=== PATIENT | male | born 1975 | race Caucasian/White ===

== ENCOUNTER 2025-09-13 15:26 | Inpatient (IN) | payer MEDICAID ==
[~2025-09-13] VITALS: Ht 165.1 cm; Wt 58.6 kg
[2025-09-13 15:31] VITALS: O2SAT 99
[2025-09-13 17:06] LABS: BASOPHILS % 0.4 % (0.0-2.0); EOSINOPHILS % 0.2 % (0.0-5.0); HEMATOCRIT. 44.2 % (42.0-52.0); HEMOGLOBIN. 14.7 g/dL (14.0-18.0); LYMPHOCYTES % 10.5 % (20.0-50.0); MEAN PLATELET VOLUME 7.8 fl (7.4-10.4); MONOCYTES % 2.8 % (2.0-8.0); NEUTROPHILS % 86.1 % (40.0-76.0); PLATELET 340 x1000/uL (130-400); RED BLOOD CELL COUNT 5.16 mill/uL (4.7-6.1); RED CELL DISTRIBUTION WIDTH 13.8 % (11.6-14.6)
[2025-09-13 17:20] LABS: CREATININE 0.8 mg/dL (0.6-1.3); ETHANOL BLOOD 63 mg/dL (<10); UREA NITROGEN BLOOD 6 mg/dL (9-23)
[2025-09-13 17:21] LABS: ASPARTATE AMINOTRANSFERASE 34 IU/L (<34)
[2025-09-13 17:22] LABS: BILIRUBIN DIRECT 0.1 mg/dL (<=3.0); BILIRUBIN TOTAL 0.4 mg/dL (0.1-1.0); PROTEIN TOTAL 8.1 g/dL (6.0-8.3)
[2025-09-13] MEDS: SODIUM CHLORIDE 0.9% 1,000 ML IV ONE (17:52)
[2025-09-13] MEDS: MORPHINE SULFATE 4 MG/ML INJ (FOR IV/IM USE) IV ONE (17:53)
[2025-09-13] MEDS: ONDANSETRON HCL 4MG/2ML INJ IV ONE (17:53)
[2025-09-13 20:56] LABS: CLARITY URINE CLEAR (CLEAR); GLUCOSE URINE 1+ (NEGATIVE); KETONES URINE 1+ (NEGATIVE); LEUKOCYTE ESTERASE URINE NEGATIVE (NEGATIVE); NITRITE URINE NEGATIVE (NEGATIVE); OCCULT BLOOD URINE NEGATIVE (NEGATIVE); PH URINE 5.5 (4.5-8.0); PROTEIN URINE NEGATIVE (NEGATIVE); SPECIFIC GRAVITY URINE 1.025 (1.005-1.030); UROBILINOGEN URINE 0.2 E.U./dL (0.2-1.0)
[2025-09-13 21:40] LABS: COLOR URINE STRAW (YELLOW)
[2025-09-13 21:41] LABS: BACTERIA URINE NONE SEEN; RBC URINE NONE SEEN /hpf (0-2); SQUAMOUS EPITHELIAL CELL URINE NONE SEEN /lpf (RARE/1+); WBC URINE 0-2 /hpf (0-2)
[2025-09-13] MEDS: MORPHINE SULFATE 2 MG/ML INJ (NOT FOR IM USE) IV SCH (22:26)
[2025-09-13] MEDS ORDERED: IOHEXOL-300 100 ML BOTTLE ONE (23:37)
[2025-09-13 23:50] VITALS: BP 141/88; PULSE 61; RESP 17; TEMP 35.584
[2025-09-14] MEDS ORDERED: NALOXONE HCL 0.4MG/ML VIAL IV PRN (00:45)
[2025-09-14] MEDS: DEXT 5%/0.45% NACL 1000ML 1,000 ML IV SCH (01:32)
[2025-09-14] MEDS: PANTOPRAZOLE SODIUM 40 MG/VIAL IV SCH (01:32)
[2025-09-14] MEDS: MORPHINE SULFATE 2 MG/ML INJ (NOT FOR IM USE) IV PRN (02:46)
[2025-09-14 04:00] VITALS: BP 148/100; PULSE 83; RESP 19; TEMP 35.8; O2SAT 99
[2025-09-14] MEDS: PIPERACILLIN/TAZO 3.375G/50ML 50 ML IV SCH (05:58)
[2025-09-14 08:00] VITALS: BP 127/97; PULSE 106; RESP 18; TEMP 36.4; O2SAT 98
[2025-09-14 09:23] LABS: CREATININE 1.2 mg/dL (0.6-1.3); UREA NITROGEN BLOOD 10 mg/dL (9-23)
[2025-09-14 12:00] VITALS: BP 126/94; PULSE 101; RESP 18; TEMP 36.5; O2SAT 99
[2025-09-14 13:00] LABS: HEMATOCRIT. 58.2 % (42.0-52.0); HEMOGLOBIN. 19.2 g/dL (14.0-18.0); MEAN PLATELET VOLUME 8.6 fl (7.4-10.4); PLATELET 427 x1000/uL (130-400); RED BLOOD CELL COUNT 6.80 mill/uL (4.7-6.1); RED CELL DISTRIBUTION WIDTH 14.2 % (11.6-14.6)
[2025-09-14 16:00] VITALS: BP 123/95; PULSE 107; RESP 18; TEMP 36.4; O2SAT 98
[2025-09-14] MEDS: DIATR MEGLU/DIATRIZOATE SOLN 30ML PO SCH (16:47)
[2025-09-14] MEDS: ONDANSETRON HCL 4MG/2ML INJ IV PRN (18:06)
[2025-09-14 20:00] VITALS: BP 129/99; PULSE 110; RESP 18; TEMP 36.3; O2SAT 99
[2025-09-14 20:07] LABS: LYMPHOCYTES % MANUAL 3.0 % (20.0-50.0); MONOCYTES % MANUAL 11.0 % (2.0-8.0); NEUTROPHILS % MANUAL 86.0 % (45.0-75.0)
[2025-09-14 20:08] LABS: PLATELET ESTIMATE INCREASED
[2025-09-14] MEDS ORDERED: IOHEXOL-300 100 ML BOTTLE ONE (23:15)
[2025-09-15] VITALS: BP 133/102; PULSE 117; RESP 19; TEMP 36.3; O2SAT 97
[2025-09-15] MEDS: MEROPENEM 1G/100ML 100 ML IV SCH (03:36)
[2025-09-15 04:00] VITALS: BP 131/104; PULSE 107; RESP 18; TEMP 35.8; O2SAT 97
[2025-09-15] MEDS: VANCOMYCIN 1.25GM/250ML 250 ML IV NR (04:20)
[2025-09-15] MEDS: HYDROMORPHONE HCL/PF 2MG/ML INJ IV PRN ×2 (04:20→13:54)
[2025-09-15 08:00] VITALS: BP 116/79; PULSE 112; RESP 15; TEMP 36.1; O2SAT 97
[2025-09-15 12:00] VITALS: BP 130/91; PULSE 84; RESP 18; TEMP 36.2; O2SAT 100
[2025-09-15 12:12] LABS: BASOPHILS % 0.4 % (0.0-2.0); EOSINOPHILS % 0.0 % (0.0-5.0); HEMATOCRIT. 50.2 % (42.0-52.0); HEMOGLOBIN. 17.1 g/dL (14.0-18.0); LYMPHOCYTES % 8.6 % (20.0-50.0); MONOCYTES % 8.7 % (2.0-8.0); NEUTROPHILS % 82.3 % (40.0-76.0); RED BLOOD CELL COUNT 5.83 mill/uL (4.7-6.1); RED CELL DISTRIBUTION WIDTH 14.0 % (11.6-14.6)
[2025-09-15 12:24] LABS: CREATININE 1.2 mg/dL (0.6-1.3); UREA NITROGEN BLOOD 12 mg/dL (9-23)
[2025-09-15] MEDS ORDERED: VANCOMYCIN 750MG/150ML (BAXTER) IV SCH (15:00)
[2025-09-15 15:33] LABS: MEAN PLATELET VOLUME 8.4 fl (7.4-10.4); PLATELET 296 x1000/uL (130-400)
[2025-09-15 16:00] VITALS: BP 119/68; PULSE 101; RESP 19; TEMP 37.1; O2SAT 100
[2025-09-15 20:00] VITALS: BP 117/83; PULSE 110; RESP 18; TEMP 36.4; O2SAT 100
[2025-09-15] MEDS: VANCOMYCIN 1G PREMIX 200 ML IV SCH (21:08)
[2025-09-16] VITALS: BP 107/74; PULSE 114; RESP 18; TEMP 36.3; O2SAT 100
[2025-09-16 04:00] VITALS: BP 117/82; PULSE 87; RESP 18; TEMP 36.4; O2SAT 100
[2025-09-16 08:00] VITALS: BP 112/66; PULSE 91; RESP 17; TEMP 36.1; O2SAT 96
[2025-09-16] MEDS: FAMOTIDINE 20MG/2ML VIAL IV SCH (09:18)
[2025-09-16 11:53] LABS: BASOPHILS % 0.2 % (0.0-2.0); EOSINOPHILS % 0.3 % (0.0-5.0); HEMATOCRIT. 42.0 % (42.0-52.0); HEMOGLOBIN. 14.0 g/dL (14.0-18.0); LYMPHOCYTES % 10.2 % (20.0-50.0); MEAN PLATELET VOLUME 8.5 fl (7.4-10.4); MONOCYTES % 9.5 % (2.0-8.0); NEUTROPHILS % 79.8 % (40.0-76.0); PLATELET 256 x1000/uL (130-400); RED BLOOD CELL COUNT 4.92 mill/uL (4.7-6.1); RED CELL DISTRIBUTION WIDTH 13.7 % (11.6-14.6)
[2025-09-16 12:00] VITALS: BP 110/77; PULSE 95; RESP 15; TEMP 36; O2SAT 96
[2025-09-16 12:17] LABS: CREATININE 0.9 mg/dL (0.6-1.3); UREA NITROGEN BLOOD 15 mg/dL (9-23)
[2025-09-16 16:00] VITALS: BP 112/66; PULSE 91; RESP 17; TEMP 36.1; O2SAT 96
[2025-09-16 20:00] VITALS: BP 130/75; PULSE 94; RESP 18; TEMP 36.5; O2SAT 95
[2025-09-17] VITALS: BP 126/66; PULSE 98; RESP 20; TEMP 36.5; O2SAT 97
[2025-09-17 04:00] VITALS: BP 128/68; PULSE 99; RESP 19; TEMP 36.4; O2SAT 97
[2025-09-17 08:00] VITALS: BP 132/74; PULSE 75; RESP 18; TEMP 35.6; O2SAT 97
[2025-09-17 09:07] LABS: CREATININE 0.8 mg/dL (0.6-1.3); UREA NITROGEN BLOOD 11 mg/dL (9-23)
[2025-09-17 09:16] LABS: BASOPHILS % 0.2 % (0.0-2.0); EOSINOPHILS % 0.5 % (0.0-5.0); HEMATOCRIT. 37.1 % (42.0-52.0); HEMOGLOBIN. 12.7 g/dL (14.0-18.0); LYMPHOCYTES % 10.6 % (20.0-50.0); MEAN PLATELET VOLUME 8.0 fl (7.4-10.4); MONOCYTES % 9.2 % (2.0-8.0); NEUTROPHILS % 79.5 % (40.0-76.0); PLATELET 278 x1000/uL (130-400); RED BLOOD CELL COUNT 4.37 mill/uL (4.7-6.1); RED CELL DISTRIBUTION WIDTH 13.5 % (11.6-14.6)
[2025-09-17 12:00] VITALS: BP 118/85; PULSE 78; RESP 16; TEMP 36.1; O2SAT 98
[2025-09-17 16:00] VITALS: BP 115/74; PULSE 78; RESP 18; TEMP 36.2; O2SAT 97
[2025-09-18 04:00] VITALS: BP 132/89; PULSE 81; RESP 19; TEMP 36.4; O2SAT 98
[2025-09-18 06:07] LABS: BASOPHILS % 0.4 % (0.0-2.0); EOSINOPHILS % 1.8 % (0.0-5.0); HEMATOCRIT. 37.1 % (42.0-52.0); HEMOGLOBIN. 12.5 g/dL (14.0-18.0); LYMPHOCYTES % 17.3 % (20.0-50.0); MEAN PLATELET VOLUME 7.9 fl (7.4-10.4); MONOCYTES % 9.8 % (2.0-8.0); NEUTROPHILS % 70.7 % (40.0-76.0); PLATELET 286 x1000/uL (130-400); RED BLOOD CELL COUNT 4.36 mill/uL (4.7-6.1); RED CELL DISTRIBUTION WIDTH 13.7 % (11.6-14.6)
[2025-09-18 06:26] LABS: CREATININE 0.7 mg/dL (0.6-1.3); UREA NITROGEN BLOOD 7 mg/dL (9-23)
[2025-09-18 08:00] VITALS: BP 118/75; PULSE 75; RESP 18; TEMP 36.6; O2SAT 96
[2025-09-18 12:00] VITALS: BP 98/54; PULSE 74; RESP 20; TEMP 36.7; O2SAT 98
[2025-09-18] MEDS: KCL 20MEQ/100ML PREMIX 100 ML IV SCH (15:38)
[2025-09-18] MEDS ORDERED: DIATR MEGLU/DIATRIZOATE SOLN 30ML PO SCH (18:00)
[2025-09-18 20:00] VITALS: BP 107/70; PULSE 90; RESP 18; TEMP 36.5; O2SAT 100
[2025-09-18] MEDS: DIATR MEGLU/DIATRIZOATE SOLN 30ML PO SCH (23:23)
[2025-09-19] VITALS: BP 105/62; PULSE 94; RESP 18; TEMP 36.6; O2SAT 100
[2025-09-19 04:00] VITALS: BP 105/61; PULSE 84; RESP 18; TEMP 36.4; O2SAT 97
[2025-09-19 08:00] VITALS: BP 122/78; PULSE 94; RESP 18; TEMP 36.4; O2SAT 94
[2025-09-19 12:00] VITALS: BP 128/80; PULSE 92; RESP 18; TEMP 36.3; O2SAT 95
[2025-09-19 16:00] VITALS: BP 127/83; PULSE 89; RESP 18; TEMP 36.4; O2SAT 96
[2025-09-19 20:00] VITALS: BP 119/73; PULSE 85; RESP 18; TEMP 36.4; O2SAT 98
[2025-09-19] MEDS: MORPHINE SULFATE 2 MG/ML INJ (NOT FOR IM USE) IV PRN (21:14)
[2025-09-20] VITALS: BP 101/70; PULSE 91; RESP 19; TEMP 36.9; O2SAT 95
[2025-09-20 04:00] VITALS: BP 119/70; PULSE 93; RESP 19; TEMP 36.7; O2SAT 98
[2025-09-20 08:00] VITALS: BP 123/76; PULSE 87; RESP 17; TEMP 35.7; O2SAT 97
[2025-09-20 11:21] LABS: BASOPHILS % 0.4 % (0.0-2.0); EOSINOPHILS % 3.3 % (0.0-5.0); HEMATOCRIT. 37.6 % (42.0-52.0); HEMOGLOBIN. 12.8 g/dL (14.0-18.0); LYMPHOCYTES % 12.4 % (20.0-50.0); MEAN PLATELET VOLUME 7.6 fl (7.4-10.4); MONOCYTES % 8.3 % (2.0-8.0); NEUTROPHILS % 75.6 % (40.0-76.0); PLATELET 333 x1000/uL (130-400); RED BLOOD CELL COUNT 4.40 mill/uL (4.7-6.1); RED CELL DISTRIBUTION WIDTH 13.6 % (11.6-14.6)
[2025-09-20 11:33] LABS: CREATININE 0.9 mg/dL (0.6-1.3); UREA NITROGEN BLOOD < 5 mg/dL (9-23)
[2025-09-20 11:34] LABS: PROTEIN TOTAL 6.1 g/dL (6.0-8.3)
[2025-09-20 11:35] LABS: ASPARTATE AMINOTRANSFERASE 87 IU/L (<34)
[2025-09-20 11:36] LABS: BILIRUBIN DIRECT 0.2 mg/dL (<=3.0); BILIRUBIN TOTAL 0.4 mg/dL (0.1-1.0)
[2025-09-20 12:00] VITALS: BP 118/69; PULSE 91; RESP 16; TEMP 36.1; O2SAT 97
[2025-09-20] MEDS: KCL 20MEQ/100ML PREMIX 100 ML IV SCH (14:00)
[2025-09-20 16:00] VITALS: BP 144/83; RESP 17; TEMP 36.1; O2SAT 98
[2025-09-20 20:00] VITALS: BP 133/67; PULSE 90; RESP 18; TEMP 36.3; O2SAT 98
[2025-09-20] MEDS ORDERED: NALOXONE HCL 0.4MG/ML VIAL IV PRN (22:00)
[2025-09-21] VITALS: BP 125/65; PULSE 87; RESP 18; TEMP 36.2; O2SAT 97
[2025-09-21 04:00] VITALS: BP 107/72; PULSE 82; RESP 18; TEMP 36.3; O2SAT 98
[2025-09-21 08:00] VITALS: BP 115/74; PULSE 78; RESP 18; TEMP 36.4; O2SAT 97
[2025-09-21 12:00] VITALS: BP 134/87; PULSE 91; RESP 18; TEMP 36.3; O2SAT 98
[2025-09-21 15:35] VITALS: BP 134/87; PULSE 91; RESP 18; TEMP 97.4
== END 2025-09-21 16:05 | disposition home or self-care (01) | DRG 247 ==
LOC: ER 15:26 → EDBD 15:26 → 6WST 21:09 → EDBEDREQTM 21:12 → EDBEDREQ 21:12 → ENRESERV 22:17
PROVIDERS: ADMIT Internal Medicine; ATTEND Internal Medicine
PROC: 0D9670Z Drainage of Stomach with Drainage Device, Via Natural or Artificial Opening (ICD-10-PCS; principal; 2025-09-15)
DX: K56.609 Unspecified intestinal obstruction, unspecified as to partial versus complete obstruction (principal); D72.829 Elevated white blood cell count, unspecified; K76.0 Fatty (change of) liver, not elsewhere classified; E87.6 Hypokalemia; F14.90 Cocaine use, unspecified, uncomplicated; F17.210 Nicotine dependence, cigarettes, uncomplicated; K56.7 Ileus, unspecified
CPT/HCPCS: 36415; 71045; 74018; 74176; 74177; 80048; 80076; 80202; 80320; 81003; 85025; 86850; 86900; 99285; J1171; J1308; J2185; J2270; J2405; J2470; J2543; J3373; J3480; J7030; Q9963; Q9967; G0480